=== PATIENT | female | born 1995 | race Caucasian/White ===

== ENCOUNTER 2017-03-25 19:58 | Emergency (ER) | payer MEDICARE, OTHER ==
[~2017-03-25] VITALS: Ht 170.2 cm; Wt 84.7 kg
[2017-03-25 21:03] LABS: HEMATOCRIT 36.7 % (36.0-46.0); HEMOGLOBIN 12.6 G/DL (11.9-15.5); MCH 29.8 PG (29.0-34.0); MCHC 34.3 G/DL (30.0-36.0); MCV 86.8 FL (83-99); PLATELET COUNT 319 K/uL (156-360); RBC DIS.WIDTH-CV 12.4 % (11.8-14.6); RBC DIS.WIDTH-SD 39.4 % (39-53); RED BLOOD COUNT 4.23 M/uL (3.80-5.20)
[2017-03-25 21:15] LABS: CHLORIDE 108 mEq/L (99-109); POTASSIUM 3.4 mEq/L (3.7-5.4); SODIUM 139 mEq/L (136-147)
[2017-03-25 21:17] LABS: GLUCOSE 83 mg/dL (70-99)
[2017-03-25 21:21] LABS: CREATININE 0.8 mg/dL (0.6-1.3)
[2017-03-25 21:22] LABS: GFR ESTIMATE (CALCULATED) > 59 mL/min/; UREA NITROGEN (BUN) 9 mg/dL (9-23)
[2017-03-25] MEDS ORDERED: DELTASONE20 M1 PO (22:50)
[2017-03-25 23:30] VITALS: BP 113/69
== END 2017-03-26 00:03 | disposition home or self-care (01) ==
LOC: EME 19:58
DX: N93.9 Abnormal uterine and vaginal bleeding, unspecified (principal); R55 Syncope and collapse; K50.90 Crohn's disease, unspecified, without complications; Z88.5 Allergy status to narcotic agent
CPT/HCPCS: 71046; 80048; 85027; 85379; 93005; 99281; 99284; J2930; J7030

== ENCOUNTER 2017-05-11 20:29 | Emergency (ER) | payer MEDICARE, OTHER ==
[~2017-05-11] VITALS: Ht 167.6 cm; Wt 74.4 kg
[~2017-05-11 20:29] MED LIST: DELTASONE20 M1 PO
[2017-05-11 21:16] LABS: APPEARANCE CLEAR ((CLEAR)); BILIRUBIN SMALL; BLOOD NEGATIVE; COLOR YELLOW ((YELLOW)); GLUCOSE (STRIP) NEGATIVE; KETONES 20; LEUKOCYTES TRACE; NITRITE NEGATIVE; PROTEIN (STRIP) 30
[2017-05-11 21:25] LABS: BACTERIA NONE SEEN /HPF; EPITHELIAL CELLS RARE /HPF; MUCUS 4+ /LPF; RED BLOOD CELLS 0-5 /HPF (0-5); UCUL ADDED? NO; WHITE BLOOD CELLS 0-5 /HPF (0-5)
[2017-05-11 21:49] LABS: HEMATOCRIT 37.5 % (36.0-46.0); HEMOGLOBIN 12.9 G/DL (11.9-15.5); MCH 29.9 PG (29.0-34.0); MCHC 34.4 G/DL (30.0-36.0); MCV 86.8 FL (83-99); PLATELET COUNT 206 K/uL (156-360); RBC DIS.WIDTH-CV 12.5 % (11.8-14.6); RBC DIS.WIDTH-SD 39.8 % (39-53); RED BLOOD COUNT 4.32 M/uL (3.80-5.20); WHITE BLOOD COUNT 4.2 K/uL (4.1-10.2)
[2017-05-11 21:58] LABS: ALBUMIN 4.8 g/dL (3.2-4.8); CHLORIDE 107 mEq/L (99-109); POTASSIUM 3.3 mEq/L (3.7-5.4); SODIUM 140 mEq/L (136-147)
[2017-05-11 22:01] LABS: GLUCOSE 92 mg/dL (70-99); TOTAL PROTEIN 7.5 g/dL (6.4-8.3)
[2017-05-11 22:03] LABS: TOTAL BILIRUBIN 0.6 mg/dL (0.0-1.0)
[2017-05-11 22:04] LABS: ALKALINE PHOSPHATASE 65 IU/L (3-129); CREATININE 0.8 mg/dL (0.6-1.3); GFR ESTIMATE (CALCULATED) > 59 mL/min/
[2017-05-11 22:05] LABS: UREA NITROGEN (BUN) 8 mg/dL (9-23)
[2017-05-11 22:06] LABS: AST (GOT) 13 IU/L (2-34)
[2017-05-11 22:07] LABS: ALT (GPT) 9 IU/L (3-49)
[2017-05-11 22:17] LABS: QUANTITATIVE HCG < 4.0 MIU/ML
[2017-05-11 23:22] LABS: LIPASE 16 U/L (1.0-51.0)
[2017-05-12] MEDS ORDERED: ZOFRAN ODT8 MG PO (00:51)
[2017-05-12] MEDS ORDERED: BENTYL20 MG PO (00:51)
[2017-05-12 01:04] VITALS: BP 114/80
[2017-05-13] MEDS ORDERED: ZANTAC150 MG PO (03:18)
== END 2017-05-12 01:05 | disposition home or self-care (01) ==
LOC: EME 20:29
DX: R10.11 Right upper quadrant pain (principal); R11.2 Nausea with vomiting, unspecified; E86.0 Dehydration; E87.6 Hypokalemia; K50.90 Crohn's disease, unspecified, without complications; Z87.442 Personal history of urinary calculi
CPT/HCPCS: 74176; 76705; 80053; 81003; 83690; 84702; 85027; 86664; 86665; 99281; 99284; J3010

== ENCOUNTER 2017-05-13 00:39 | Emergency (ER) | payer MEDICARE, OTHER ==
[~2017-05-13] VITALS: Ht 167.6 cm; Wt 75.1 kg
[~2017-05-13 00:39] MED LIST changes: +BENTYL20 MG PO; +ZOFRAN ODT8 MG PO
[2017-05-13 01:15] LABS: BASOPHIL (%) 0.4 % (0-1); EOSINOPHIL COUNT 0.3 K/uL (0-0.3); HEMATOCRIT 37.8 % (36.0-46.0); HEMOGLOBIN 13.3 G/DL (11.9-15.5); IMMATURE GRANULOCYTE (%) 0.2 % (0.0-0.7); LYMPHOCYTE (%) 34.5 % (15-42); LYMPHOCYTE COUNT 1.9 K/uL (1.0-2.8); MCH 29.8 PG (29.0-34.0); MCHC 35.2 G/DL (30.0-36.0); MCV 84.6 FL (83-99); MONOCYTE COUNT 0.7 K/uL (0-0.8); NEUTROPHIL (%) 47.9 % (45-76); NEUTROPHIL COUNT 2.7 K/uL (1.8-6.4); PLATELET COUNT 225 K/uL (156-360); RBC DIS.WIDTH-CV 12.6 % (11.8-14.6); RBC DIS.WIDTH-SD 38.7 % (39-53); RED BLOOD COUNT 4.47 M/uL (3.80-5.20); WHITE BLOOD COUNT 5.6 K/uL (4.1-10.2)
[2017-05-13 01:25] LABS: ALBUMIN 4.9 g/dL (3.2-4.8); CHLORIDE 106 mEq/L (99-109); POTASSIUM 3.1 mEq/L (3.7-5.4); SODIUM 138 mEq/L (136-147)
[2017-05-13 01:26] LABS: MAGNESIUM 1.5 mg/dL (1.3-2.7)
[2017-05-13 01:27] LABS: GLUCOSE 96 mg/dL (70-99)
[2017-05-13 01:28] LABS: TOTAL PROTEIN 7.7 g/dL (6.4-8.3)
[2017-05-13 01:29] LABS: TOTAL BILIRUBIN 0.5 mg/dL (0.0-1.0)
[2017-05-13 01:31] LABS: ALKALINE PHOSPHATASE 69 IU/L (3-129); CREATININE 0.8 mg/dL (0.6-1.3); GFR ESTIMATE (CALCULATED) > 59 mL/min/
[2017-05-13 01:32] LABS: UREA NITROGEN (BUN) 6 mg/dL (9-23)
[2017-05-13 01:33] LABS: AST (GOT) 14 IU/L (2-34)
[2017-05-13 01:34] LABS: ALT (GPT) 8 IU/L (3-49)
[2017-05-13] MEDS ORDERED: ZANTAC150 MG PO (03:18)
[2017-05-13 03:29] VITALS: BP 113/70
== END 2017-05-13 03:30 | disposition home or self-care (01) ==
LOC: EME 00:39
PROVIDERS: Emergency Medicine
DX: K21.9 Gastro-esophageal reflux disease without esophagitis (principal); K50.90 Crohn's disease, unspecified, without complications; Z87.442 Personal history of urinary calculi
CPT/HCPCS: 80053; 83735; 85025; 99281; 99285; J2765